=== PATIENT | female | born 1985 | race Caucasian/White ===

== ENCOUNTER → 2024-03-05 | Emergency (ER) | payer OTHER ==
[~2024-03-05] VITALS: Ht 175.3 cm; Wt 82.6 kg
[2024-03-06 00:31] VITALS: PULSE 65; RESP 18; TEMP 97.9; O2SAT 98
== END | disposition other institution (70) ==
LOC: FSED 20:30
DX: R06.00 Dyspnea, unspecified (principal); R07.9 Chest pain, unspecified; R00.2 Palpitations; I12.9 Hypertensive chronic kidney disease with stage 1 through stage 4 chronic kidney disease, or unspecified chronic kidney disease; N18.9 Chronic kidney disease, unspecified; K76.9 Liver disease, unspecified; Z87.442 Personal history of urinary calculi; R94.31 Abnormal electrocardiogram [ECG] [EKG]
CPT/HCPCS: 71046; 80053; 81003; 81025; 84484; 85025; 93005

== ENCOUNTER 2024-06-04 16:25 | Inpatient (IN) | payer MEDICAID ==
[2024-06-04] VITALS (13 sets, daily range): BP systolic 98–116; BP diastolic 52–83; PULSE 60–76; RESP 15–24; TEMP 97.6–98.7; O2SAT 93–100
[~2024-06-04] VITALS: Ht 175.3 cm; Wt 73.5 kg
[2024-06-04] MEDS ORDERED: FUROSEMIDE INJ 10 MG/ML 2 ML VIAL IV PRN (16:45)
[2024-06-04 17:00] LABS: BASOPHILS # (AUTO) 0.1 (0.0-0.1); BASOPHILS % 1.1 % (0.0-1.0); EOSINOPHILS # (AUTO) 0.1 (0.0-0.4); EOSINOPHILS % 1.9 % (0.0-6.0); HEMATOCRIT 25.2 % (34.2-44.1); HEMOGLOBIN 7.2 g/dL (12.0-16.0); LYMPHOCYTES # (AUTO) 1.3 (1.0-3.2); LYMPHOCYTES % 27.3 % (18.0-39.1); MEAN CORPUSCULAR HGB CONC 28.6 g/dL (31-35); MEAN CORPUSCULAR VOLUME 55.9 fL (81-99); MONOCYTES # (AUTO) 0.3 (0.2-0.8); MONOCYTES % 6.2 % (4.4-11.3); NEUTROPHILS % 63.1 % (38.7-80.0); PLATELET COUNT 155 x10e3/uL (140-360); RED BLOOD COUNT 4.51 x10e6/uL (3.6-5.1); RED CELL DISTRIBUTION WIDTH 24.7 % (11.7-14.4); WHITE BLOOD COUNT 4.69 x10e3/uL (4.8-10.8)
[2024-06-04 17:15] LABS: INR 1.17; PROTHROMBIN TIME 15.6 seconds (11.9-14.5)
[2024-06-04 17:16] LABS: PARTIAL THROMBOPLASTIN TIME 39.1 seconds (23.8-35.5)
[2024-06-04 17:25] LABS: ALANINE AMINOTRANSFERASE 27 IU/L (0-55); ALBUMIN 3.4 g/dL (3.5-5.0); ALBUMIN/GLOBULIN RATIO 1.3 (0.8-2.0); ALKALINE PHOSPHATASE 67 IU/L (40-150); ANION GAP 14.2 mmol/L (8-16); BILIRUBIN,TOTAL 2.2 mg/dL (0.2-1.2); BLOOD UREA NITROGEN 13 mg/dL (7-26); BUN/CREATININE RATIO 17 (6-25); CALCIUM 8.4 mg/dL (8.4-10.2); CARBON DIOXIDE 16 mmol/L (22-29); CHLORIDE 112 mmol/L (98-107); CREATININE, SERUM 0.75 mg/dL (0.57-1.11); EST GLOMERULAR FILTRATION RATE 103 ML/MIN (>=60); GLUCOSE 88 mg/dL (74-118); MAGNESIUM 1.5 MG/DL (1.3-2.1); SODIUM 139 mmol/L (136-145)
[2024-06-04 17:31] LABS: POTASSIUM 3.2 mmol/L (3.5-5.1)
[2024-06-04 17:32] LABS: TROPONIN I < 0.001 ng/mL (0-0.300)
[2024-06-04] MEDS: OCTREOTIDE ACETATE 0.05 MG/ML AMP IV STA (17:37)
[2024-06-04] MEDS: PHYTONADIONE 10 MG/ML AMP PO ONE (18:03)
[2024-06-04] MEDS: OCTREOTIDE ACETATE 600 MCG in SODIUM CHLORIDE 0.9% 250ML 300 ML IV SCH (18:14)
[2024-06-04] MEDS ORDERED: ONDANSETRON HCL INJ 2MG/ML 2ML 2 MG/ML VIAL IV PRN (18:15)
[2024-06-04] MEDS: SODIUM CHLORIDE 0.9% 1000ML 1,000 ML IV ONE (18:22)
[2024-06-04 19:06] LABS: HYPOCHROMASIA MODERATE; MICROCYTOSIS MODERATE; OVALOCYTES FEW; POIKILOCYTOSIS MODERATE
[2024-06-04 19:07] LABS: RBC MORPHOLOGY COMMENT ABNORMAL; ROULEAU FEW
[2024-06-04] MEDS ORDERED: SODIUM CHLORIDE 0.9% 250ML 250 ML ONE (20:02)
[2024-06-04] MEDS: SODIUM CHLORIDE 0.9% 250ML 250 ML IV ONE (21:19)
[2024-06-04] MEDS ORDERED: JARDIANCE10 MG PO (21:27)
[2024-06-04] MEDS ORDERED: SPIRONOLACTONE25 MG PO (21:27)
[2024-06-04] MEDS ORDERED: NEURONTIN300 MG PO (21:27)
[2024-06-04] MEDS ORDERED: LEVOTHYROXINE112 MCG PO (21:27)
[2024-06-04] MEDS ORDERED: ATIVAN0.5 MG PO (21:27)
[2024-06-04] MEDS ORDERED: ADDERALL XR 2020 MG (21:27)
[2024-06-04] MEDS ORDERED: OPSUMIT10 MG PO (21:28)
[2024-06-05] VITALS (25 sets, daily range): BP systolic 82–118; BP diastolic 54–87; PULSE 55–87; RESP 13–27; TEMP 97–98.3; O2SAT 90–100
[2024-06-05] MEDS: MAGNESIUM SULFATE 2GM/50ML 50 ML IV ONE (01:55)
[2024-06-05] MEDS: POTASSIUM CHLORIDE 10MEQ EA PO ONE (01:55)
[2024-06-05 02:49] LABS: % IRON SATURATION 7 % (15-50); IRON 35 ug/dL (50-170); TOTAL IRON BINDING CAPACITY 505 ug/dL (261-478); TRANSFERRIN 361 mg/dL (180-382)
[2024-06-05 03:45] LABS: FOLATE 5.9 ng/mL (7.0-15.4)
[2024-06-05] MEDS: LEVOTHYROXINE SODIUM 112 MCG TAB PO SCH (06:17)
[2024-06-05 09:09] LABS: EOSINOPHILS # (AUTO) 0.2 (0.0-0.4); EOSINOPHILS % 4.3 % (0.0-6.0); LYMPHOCYTES # (AUTO) 1.3 (1.0-3.2); MEAN CORPUSCULAR HEMOGLOBIN 17.3 pg (28-32); MEAN CORPUSCULAR HGB CONC 29.3 g/dL (31-35); MEAN CORPUSCULAR VOLUME 59.1 fL (81-99); MONOCYTES # (AUTO) 0.3 (0.2-0.8); MONOCYTES % 6.9 % (4.4-11.3); NEUTROPHILS # (AUTO) 2.2 (2.1-6.9); NEUTROPHILS % 55.5 % (38.7-80.0); PLATELET COUNT 134 x10e3/uL (140-360); RED BLOOD COUNT 4.21 x10e6/uL (3.6-5.1); RED CELL DISTRIBUTION WIDTH 27.2 % (11.7-14.4); WHITE BLOOD COUNT 3.91 x10e3/uL (4.8-10.8)
[2024-06-05 09:40] LABS: ALBUMIN 3.1 g/dL (3.5-5.0); ALBUMIN/GLOBULIN RATIO 1.3 (0.8-2.0); ANION GAP 12.2 mmol/L (8-16); BILIRUBIN,TOTAL 2.9 mg/dL (0.2-1.2); CALCIUM 8.3 mg/dL (8.4-10.2); CREATININE, SERUM 0.82 mg/dL (0.57-1.11); POTASSIUM 4.2 mmol/L (3.5-5.1); TOTAL PROTEIN 5.4 g/dL (6.5-8.1)
[2024-06-05 09:43] LABS: HEMOGLOBIN 7.5 g/dL (12.0-16.0)
[2024-06-05 09:44] LABS: HEMATOCRIT 25.5 % (34.2-44.1)
[2024-06-05] MEDS: FOLIC ACID 1 MG TAB PO SCH (10:33)
[2024-06-05] MEDS: SPIRONOLACTONE 25 MG TAB PO SCH (10:33)
[2024-06-05] MEDS: GABAPENTIN 300 MG CAP PO SCH (10:33)
[2024-06-05 10:47] LABS: FERRITIN 12.6 ng/mL (4.63-204.00); THYROID STIMULATING HORMONE 1.234 uIU/mL (0.350-4.940)
[2024-06-05] MEDS: IRON SUCROSE 100 MG in SODIUM CHLORIDE 0.9% 100 ML IV SCH (17:16)
[2024-06-05] MEDS: OCTREOTIDE ACETATE 500 MCG in SODIUM CHLORIDE 0.9% 250ML 250 ML IV SCH (17:29)
[2024-06-05] MEDS ORDERED: POLYETHYLENE GLYCOL 3350 17 GM PACK PO PRN (22:30)
[2024-06-06] MEDS: ACETAMINOPHEN 325 MG TAB PO PRN (02:36)
[2024-06-06] MEDS: LORAZEPAM 0.5 MG TAB PO PRN (02:36)
[2024-06-06 05:00] VITALS: PULSE 58; RESP 20; TEMP 98.3; O2SAT 92
[2024-06-06 07:13] LABS: ALBUMIN 3.2 g/dL (3.5-5.0); ALBUMIN/GLOBULIN RATIO 1.4 (0.8-2.0); ANION GAP 10.8 mmol/L (8-16); BILIRUBIN,TOTAL 2.7 mg/dL (0.2-1.2); CALCIUM 8.1 mg/dL (8.4-10.2); CREATININE, SERUM 0.81 mg/dL (0.57-1.11); MAGNESIUM 1.6 MG/DL (1.3-2.1); POTASSIUM 3.8 mmol/L (3.5-5.1); TOTAL PROTEIN 5.5 g/dL (6.5-8.1)
[2024-06-06 07:29] LABS: BASOPHILS # (AUTO) 0.1 (0.0-0.1); BASOPHILS % 1.1 % (0.0-1.0); EOSINOPHILS # (AUTO) 0.2 (0.0-0.4); EOSINOPHILS % 4.2 % (0.0-6.0); HEMATOCRIT 27.1 % (34.2-44.1); HEMOGLOBIN 7.8 g/dL (12.0-16.0); LYMPHOCYTES # (AUTO) 1.1 (1.0-3.2); LYMPHOCYTES % 22.9 % (18.0-39.1); MEAN CORPUSCULAR HEMOGLOBIN 17.4 pg (28-32); MEAN CORPUSCULAR HGB CONC 28.8 g/dL (31-35); MEAN CORPUSCULAR VOLUME 60.4 fL (81-99); MONOCYTES # (AUTO) 0.3 (0.2-0.8); MONOCYTES % 7.2 % (4.4-11.3); NEUTROPHILS % 64.2 % (38.7-80.0); PLATELET COUNT 134 x10e3/uL (140-360); RED BLOOD COUNT 4.49 x10e6/uL (3.6-5.1); RED CELL DISTRIBUTION WIDTH 27.4 % (11.7-14.4); WHITE BLOOD COUNT 4.72 x10e3/uL (4.8-10.8)
[2024-06-06 07:41] VITALS: BP 96/73; PULSE 57; RESP 20; TEMP 97.9; O2SAT 92
[2024-06-06 07:46] VITALS: BP 96/73; PULSE 57; RESP 20; TEMP 97.9; O2SAT 92
[2024-06-06] MEDS ORDERED: MAGNESIUM SULFATE 2GM/50ML 50 ML IV ONE (08:00)
[2024-06-06] MEDS ORDERED: PANTOPRAZOLE SO40 MG PO (08:07)
[2024-06-06] MEDS ORDERED: Folic Acid PO (08:07)
[2024-06-06 09:52] LABS: ANISOCYTOSIS MODERATE; HYPOCHROMASIA MODERATE; MICROCYTOSIS MODERATE; OVALOCYTES FEW; PLATELET ESTIMATE SLIGHTLY DECREASED; POLYCHROMASIA FEW; RBC MORPHOLOGY COMMENT ABNORMAL; SCHISTOCYTES RARE; TARGET CELLS FEW
== END 2024-06-06 08:45 | disposition home or self-care (01) | DRG 811 ==
LOC: ER 16:45 → ERHOLD 18:13 → ICU 20:50
PROVIDERS: ADMIT Internal Medicine; ATTEND Internal Medicine
PROC: 30233N1 Transfusion of Nonautologous Red Blood Cells into Peripheral Vein, Percutaneous Approach (ICD-10-PCS; principal; 2024-06-04)
PROC: 30233K1 Transfusion of Nonautologous Frozen Plasma into Peripheral Vein, Percutaneous Approach (ICD-10-PCS; 2024-06-05)
DX: D50.9 Iron deficiency anemia, unspecified (principal); I85.01 Esophageal varices with bleeding; K92.0 Hematemesis; K76.6 Portal hypertension; I27.20 Pulmonary hypertension, unspecified; K70.30 Alcoholic cirrhosis of liver without ascites; R01.1 Cardiac murmur, unspecified; I12.9 Hypertensive chronic kidney disease with stage 1 through stage 4 chronic kidney disease, or unspecified chronic kidney disease; N18.9 Chronic kidney disease, unspecified; N20.0 Calculus of kidney; Z79.890 Hormone replacement therapy; Z79.84 Long term (current) use of oral hypoglycemic drugs; F17.210 Nicotine dependence, cigarettes, uncomplicated; F17.290 Nicotine dependence, other tobacco product, uncomplicated
CPT/HCPCS: 36415; 71045; 76705; 80053; 82140; 82607; 82728; 82746; 83540; 83735; 84443; 84466; 84484; 84702; 85025; 85045; 85610; 85730; 86850; 86900; 86920; 93005; 93976; 99284; J1756; J2353; J2354; J2470; J3430; J3475; J7030; J7050; P9016; P9017

== ENCOUNTER 2024-07-09 07:14 | Emergency (ER) | payer MEDICAID ==
[~2024-07-09] VITALS: Ht 175.3 cm; Wt 73.5 kg
[~2024-07-09 07:14] MED LIST: ADDERALL XR 2020 MG; ATIVAN0.5 MG PO; Folic Acid PO; JARDIANCE10 MG PO; LEVOTHYROXINE112 MCG PO; NEURONTIN300 MG PO; OPSUMIT10 MG PO; PANTOPRAZOLE SO40 MG PO; SPIRONOLACTONE25 MG PO
[2024-07-09 07:35] VITALS: PULSE 78; RESP 17; TEMP 98.3; O2SAT 100
== END 2024-07-09 08:29 | disposition home or self-care (01) ==
LOC: ER 07:31
DX: M25.511 Pain in right shoulder (principal); S46.811A Strain of other muscles, fascia and tendons at shoulder and upper arm level, right arm, initial encounter; X50.1XXA Overexertion from prolonged static or awkward postures, initial encounter; Y92.89 Other specified places as the place of occurrence of the external cause; I12.9 Hypertensive chronic kidney disease with stage 1 through stage 4 chronic kidney disease, or unspecified chronic kidney disease; N18.9 Chronic kidney disease, unspecified; K76.9 Liver disease, unspecified; F41.9 Anxiety disorder, unspecified
CPT/HCPCS: 99283